=== PATIENT | male | born 1995 | race Caucasian/White ===

== ENCOUNTER 2018-10-03 22:34 | Emergency (ER) ==
[2018-10-03 22:43] VITALS: BP 141/87; TEMP 97.9; BMI 23.8
[2018-10-03] MEDS ORDERED: LIDOCAINE HCL 1% SDV SUBCUT STA (22:45)
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
[2018-10-03] MEDS ORDERED: AMOXIL PO STA (23:43)
[2018-10-03] MEDS ORDERED: NORCO 5-325 PO STA (23:43)
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
== END 2018-10-03 23:55 | disposition home or self-care (01) ==
LOC: ED 22:34
DX: S01.511A Laceration without foreign body of lip, initial encounter (principal); S03.2XXA Dislocation of tooth, initial encounter; Y09 Assault by unspecified means
CPT/HCPCS: 99283